=== PATIENT | male | born 1945 ===

== ENCOUNTER 2018-10-21 10:22 | Outpatient (CLI) | payer MEDICARE, OTHER | END 2018-10-21 10:23 | disposition home or self-care (01) | LOC: C.LAB 10:22 ==

== ENCOUNTER 2018-10-25 08:31 | Outpatient (CLI) | payer MEDICARE, OTHER | END 2018-10-25 08:32 | disposition home or self-care (01) | LOC: C.CTH 08:31 | DX: Z85.46 Personal history of malignant neoplasm of prostate (principal) ==

== ENCOUNTER 2018-10-29 08:43 | Outpatient (CLI) | payer MEDICARE, OTHER | END 2018-10-29 08:44 | disposition home or self-care (01) | LOC: C.RADH 08:43 ==

== ENCOUNTER 2018-11-05 13:34 | Outpatient (CLI) | payer MEDICARE, OTHER | END 2018-11-05 13:35 | disposition home or self-care (01) | LOC: C.RADIC 13:34 ==